=== PATIENT | female | born 1960 | race Two or more races ===

== ENCOUNTER → 2021-06-20 | Outpatient (CLI) | payer OTHER | LOC: HEART 5 13:56 | DX: I48.91 Unspecified atrial fibrillation (principal); Z95.2 Presence of prosthetic heart valve | CPT/HCPCS: 93306 ==

== ENCOUNTER → 2021-06-27 | Outpatient (CLI) | payer OTHER | LOC: MAMO 11:29 | DX: Z12.31 Encounter for screening mammogram for malignant neoplasm of breast (principal) | CPT/HCPCS: 77063; 77067 ==

== ENCOUNTER → 2021-10-10 | Outpatient (CLI) | payer OTHER | LOC: EXRD 13:58 | DX: Z13.820 Encounter for screening for osteoporosis (principal); Z78.0 Asymptomatic menopausal state; M85.88 Other specified disorders of bone density and structure, other site | CPT/HCPCS: 77080 ==

== ENCOUNTER → 2022-08-09 | Day surgery (SDC) | payer OTHER ==
[~2022-08-09] VITALS: Ht 152.4 cm; Wt 61.2 kg
[~2022-08-09] MED LIST: ATORVASTATIN CA10 MG PO; CALCIUM 600 +1 EA10 PO; DIGOXIN250 MCG PO; JARDIANCE10 MG PO; LASIX TAB 20 MG20 MG PO; LEVOTHYROXINE50 MCG PO; METFORMIN HCL1000 MG PO; METOPROLOL SUCC50 MG PO; PANTOPRAZOLE SO20 MG PO; POTASSIUM CHLO10 ME1 PO; TRULICITY1.5 MG/0.5 SQ; VITAMIN D350 MC3 PO; WARFARIN SODIUM5 MG PO
== END | disposition home or self-care (01) ==
LOC: OR 08:33
DX: R11.2 Nausea with vomiting, unspecified (principal); R10.9 Unspecified abdominal pain; D68.32 Hemorrhagic disorder due to extrinsic circulating anticoagulants; I25.10 Atherosclerotic heart disease of native coronary artery without angina pectoris; I10 Essential (primary) hypertension; E78.00 Pure hypercholesterolemia, unspecified; K21.9 Gastro-esophageal reflux disease without esophagitis; E11.9 Type 2 diabetes mellitus without complications; E03.9 Hypothyroidism, unspecified; Z95.2 Presence of prosthetic heart valve; Z79.84 Long term (current) use of oral hypoglycemic drugs; Z79.01 Long term (current) use of anticoagulants; Z79.899 Other long term (current) drug therapy
CPT/HCPCS: 82150; 82962; 83690; J2704; J7040

== ENCOUNTER → 2022-08-11 | Outpatient (CLI) | payer OTHER | LOC: US 08-09 09:30 | DX: R11.2 Nausea with vomiting, unspecified (principal); K76.0 Fatty (change of) liver, not elsewhere classified | CPT/HCPCS: 76705 ==